=== PATIENT | female | born 1990 | race African-American/Black ===

== ENCOUNTER 2018-03-19 21:13 | Emergency (ER) | payer SELFPAY ==
[~2018-03-19] VITALS: Ht 157.5 cm; Wt 77.0 kg
[2018-03-19 21:23] VITALS: BP 132/76
== END 2018-03-20 01:30 | disposition left against medical advice (07) ==
LOC: ER 22:12
DX: R51 Headache (principal); R07.81 Pleurodynia; J45.909 Unspecified asthma, uncomplicated; F17.200 Nicotine dependence, unspecified, uncomplicated; Z53.21 Procedure and treatment not carried out due to patient leaving prior to being seen by health care provider

== ENCOUNTER 2019-03-22 09:36 | Emergency (ER) | payer MEDICAID ==
[~2019-03-22] VITALS: Ht 180.3 cm; Wt 90.0 kg
[2019-03-22 11:19] LABS: CHLORIDE 107 mEq/L (98-107)
[2019-03-22 11:21] LABS: BASOPHILS % 0.4 % (0.0-2.0); EOSINOPHILS % 3.8 % (0.0-5.0); HEMATOCRIT. 36.5 % (36.0-48.0); HEMOGLOBIN. 12.6 g/dL (12.0-16.0); LYMPHOCYTES % 27.4 % (20.0-50.0); MEAN CORPUSCULAR HEMOGLOBIN 31.3 pg (28.0-32.0); MEAN CORPUSCULAR VOLUME 90.4 fL (81.0-99.0); MEAN PLATELET VOLUME 8.1 fl (7.4-10.4); MONOCYTES % 6.4 % (2.0-8.0); PLATELET 212 x1000/uL (130-400); RED BLOOD CELL COUNT 4.04 mill/uL (4.2-5.4); RED CELL DISTRIBUTION WIDTH 13.2 % (11.6-14.6)
[2019-03-22 11:31] LABS: B-HCG QUANTITATIVE 573 mIU/mL (<3)
[2019-03-22 11:45] LABS: CLARITY URINE CLOUDY (CLEAR); COLOR URINE DARK YELLOW (YELLOW)
[2019-03-22 11:46] LABS: KETONES URINE 4+ (NEGATIVE); LEUKOCYTE ESTERASE URINE 1+ (NEGATIVE); NITRITE URINE NEGATIVE (NEGATIVE); OCCULT BLOOD URINE 3+ (NEGATIVE); PROTEIN URINE 2+ (NEGATIVE); SPECIFIC GRAVITY URINE 1.027 (1.005-1.030); UROBILINOGEN URINE 0.2 E.U./dL (0.2-1.0)
[2019-03-22] MEDS ORDERED: CEFTRIAXONE 1 G PREMIX 50 ML IV NR (12:00)
[2019-03-22 13:47] VITALS: BP 118/69
== END 2019-03-22 13:50 | disposition home or self-care (01) ==
LOC: ER 09:36
DX: O20.9 Hemorrhage in early pregnancy, unspecified (principal); O23.41 Unspecified infection of urinary tract in pregnancy, first trimester; O99.511 Diseases of the respiratory system complicating pregnancy, first trimester; J45.909 Unspecified asthma, uncomplicated; Z3A.01 Less than 8 weeks gestation of pregnancy
CPT/HCPCS: 36415; 76801; 76817; 80053; 81003; 81025; 84702; 85025; 85610; 86850; 86900; 86901; 87086; 96365; 99284; J0696

== ENCOUNTER 2019-04-07 17:54 | Emergency (ER) | payer MEDICAID ==
[~2019-04-07] VITALS: Ht 170.2 cm; Wt 85.0 kg
[2019-04-07 20:15] VITALS: BP 122/66
== END 2019-04-07 20:24 | disposition home or self-care (01) ==
LOC: ER 17:54
DX: J03.80 Acute tonsillitis due to other specified organisms (principal); B96.89 Other specified bacterial agents as the cause of diseases classified elsewhere; J45.909 Unspecified asthma, uncomplicated; F17.210 Nicotine dependence, cigarettes, uncomplicated
CPT/HCPCS: 81025; 87070; 87430; 99283

== ENCOUNTER 2021-07-05 09:41 | Emergency (ER) | payer MEDICAID ==
[~2021-07-05] VITALS: Ht 180.3 cm; Wt 86.0 kg
[2021-07-05 09:56] VITALS: BP 145/92
[2021-07-05] MEDS ORDERED: HYDR-4233 TP (10:57)
== END 2021-07-05 11:05 | disposition home or self-care (01) ==
LOC: ER 09:41
DX: L25.9 Unspecified contact dermatitis, unspecified cause (principal); J45.909 Unspecified asthma, uncomplicated
CPT/HCPCS: 99283

== ENCOUNTER 2021-10-10 16:23 | Emergency (ER) | payer MEDICAID ==
[~2021-10-10] VITALS: Ht 180.3 cm; Wt 86.0 kg
[~2021-10-10 16:23] MED LIST: HYDR-4233 TP
[2021-10-10 16:43] VITALS: BP 134/84
[2021-10-10] MEDS ORDERED: EPINEPHRINE 1:1000 1 MG/ML AMP IM ONE (17:15)
[2021-10-10] MEDS ORDERED: DEXAMETHASONE 10 MG/ML VIAL IM ONE (17:15)
[2021-10-10] MEDS ORDERED: DIPHENHYDRAMINE 50MG CAPSULE PO ONE (17:15)
[2021-10-10] MEDS ORDERED: FAMOTIDINE 20MG TABLET PO ONE (17:15)
== END 2021-10-10 19:21 | disposition left against medical advice (07) ==
LOC: ER 16:23
DX: T78.40XA Allergy, unspecified, initial encounter (principal); J45.909 Unspecified asthma, uncomplicated; X58.XXXA Exposure to other specified factors, initial encounter
CPT/HCPCS: 99282; J1100; J3490; Q0163